=== PATIENT | female | born 1990 | race Caucasian/White ===

== ENCOUNTER 2017-01-20 09:20 | Observation (INO) | payer MEDICAID ==
[~2017-01-20] VITALS: Ht 149.9 cm; Wt 79.4 kg
== END 2017-01-20 11:25 | disposition home or self-care (01) ==
LOC: SPU 09:20
PROVIDERS: ADMIT Specialist; ATTEND Specialist
DX: O26.892 Other specified pregnancy related conditions, second trimester (principal); R10.9 Unspecified abdominal pain; Z3A.27 27 weeks gestation of pregnancy
CPT/HCPCS: G0378

== ENCOUNTER 2018-10-03 09:30 | Observation (INO) | payer MEDICAID ==
[~2018-10-03] VITALS: Ht 152.4 cm; Wt 79.8 kg
== END 2018-10-03 10:50 | disposition home or self-care (01) ==
LOC: SPU 09:30
PROVIDERS: ADMIT Obstetrics & Gynecology; ATTEND Obstetrics & Gynecology
DX: O26.893 Other specified pregnancy related conditions, third trimester (principal); R10.9 Unspecified abdominal pain; Z3A.30 30 weeks gestation of pregnancy
CPT/HCPCS: G0378